=== PATIENT | male | born 1940 | race Caucasian/White ===

== ENCOUNTER 2022-05-08 10:03 | Emergency (ER) | payer MEDICARE, OTHER, SELFPAY ==
[2022-05-08 10:04] VITALS: BP 139/83; PULSE 67; RESP 18; TEMP 36.4; O2SAT 96; BMI 29.5
--- NOTE | 2022-05-08 10:38 | EKG12_ITS ---
Test Reason : SYNCOPE Blood Pressure : / mmHG Vent. Rate : 070 BPM Atrial Rate : 070 BPM P-R Int : 206 ms QRS Dur : 094 ms QT Int : 402 ms P-R-T Axes : 072 -18 034 degrees QTc Int : 434 ms Normal sinus rhythm Normal ECG Confirmed by VERNELL MANDEL, REGIS ([id number]), marketing editor PAULA DUEÑAS ([id number]) on 05/12/2022 12:16:47 P M Referred By: LIMA/PAULIE Confirmed By:JUANA MATT MD
--- NOTE | 2022-05-08 10:40 | EDS_ITS ---
HPI History of Present Illness Chief Complaint: Syncope Informant: patient Narrative Narrative: Patient presents after syncopal episode at physician's office. 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 He always has problems moving his bowels and passing the urine. On the way to a appointment he felt he needed to move his bowels. He went into the bathroom. He states that he strained and strained and strained for a long time. He has had syncope before. So he was told that straining is dangerous and can cause syncope. He started to feel like he was going to pass out doing this. Therefore he stood up and went into the waiting room. He then evidently did pass out. Per the patient and the they were told that a pulse was not able to be felt and CPR was initiated for short period of time there. He has a little soreness in the sternum but not much. He is not having abdominal pain. But he does have some fullness feeling like he needs to move his bowels. His last bowel movement was about 2 days ago. He is not having back pain. He has no known history of a AAA. Of note, he is also on atenolol for one of his blood pressure meds. [facility] Medical History Arthritis Benign hypertension CLL (chronic lymphocytic leukemia) HTN (hypertension) Hypoglycemia Insulin pump titration Leukemia Lymphoma Prostate Tissues Seasonal allergies sub-mucus resection of nose Home Medications atenolol 25 mg tablet 25 mg PO DAILY 12/18/16 [History Last Taken 12/24/16] bupropion HCl 150 mg tablet,12 hr sustained-release 150 mg PO BID MENTAL HEALTH 12/18/16 [History Last Taken 12/25/16] docusate sodium 100 mg capsule 100 mg PO BID CONSTIPATION 12/18/16 [History Last Taken 12/25/16] losartan 50 mg tablet 50 mg PO DAILY BLOOD PRESSURE 12/18/16 [History Last Taken 12/24/16] multivitamin 1 tab PO DAILY SUPPLEMENT 12/18/16 [History Last Taken 12/24/16] psyllium husk 0.4 gram capsule (Daily Fiber) 0.4 g PO DAILY 12/22/19 [History Last Taken Unknown] pantoprazole 40 mg tablet,delayed release ea PO 12/18/20 [History Last Taken Unknown] tumeric 100 mg-alexandra 150 mg-olive 50 mg-oreg 150 mg-caprylate capsule cap PO 06/07/21 [History Last Taken Unknown] insulin aspart U-100 100 unit/mL subcutaneous solution 100 unit subcut DAILY diabetes #90 mL 12/06/21 [Rx Last Taken Unknown] bisacodyl 5 mg tablet,delayed release (Dulcolax (bisacodyl)) 10 mg PO BID PRN constipation #20 tabs 05/08/22 [Rx Last Taken Unknown] Allergy/AdvReac Type Severity Reaction Status Date / Time obinutuzumab Allergy Severe hypersensiv Verified 05/08/22 10:03 ity lisinopril Allergy Other Verified 05/08/22 10:03 Family History Mother Depression Dementia Father Parkinson disease Diabetes CVA (cerebral vascular accident) Surgical History H/O inguinal hernia repair H/O inguinal hernia repair History of appendectomy History of hydrocelectomy History of tonsillectomy and adenoidectomy Social History Smoking Status: Never smoker alcohol intake: never substance use type: does not use what type of physical activity do you participate in: none ROS ROS ED Constitutional Constitutional ED: Denies chills, fever(s) or subjective Eyes Eyes: Denies change in vision ENT ENT ED: Denies rhinorrhea Cardiovascular Cardiovascular: Reports other Details: See history of present illness. ; Denies chest pain, palpitations or racing heartbeat Respiratory/Chest Respiratory/Chest: Denies cough or dyspnea Gastrointestinal Gastrointestinal: Reports constipation; Denies abdominal pain, diarrhea, melena, nausea or vomiting Genitourinary Genitourinary ED: Denies dysuria Musculoskeletal Musculoskeletal: Denies back pain or myalgias Integumentary Denies rash Neurologic Neurologic: Denies headache(s) Hematologic/Lymphatic Hematologic/Lymphatic: Denies easy bleeding or easy bruising Allergic/Immunologic Allergic/Immunologic ED: Denies urticaria EXAM Physical Exam Narrative Exam Narrative: Patient is awake and alert. He gives detailed history of some of his prior events. No sign of confusion. HEENT: Shows no sign of trauma. Mucous membranes are minimally dry. Neck shows no JVD Lungs are actually clear bilaterally. He states he has a little soreness in the sternum but I feel no crepitance or step-off or notable tenderness. Heart is regular with a rate of about 60. I hear no murmur gallop or rub. Pulses are equal upper and lower extremities. Abdomen is mildly obese but nontender. He has a CGM and his insulin pump in place. I hear no bruit. I feel no mass and there is no tenderness. Extremities show no mottling pallor swelling tenderness or loss of pulses. Neurologically he is awake alert appropriate no acute distress. I did not sit him up at this point. But he is not dizzy or lightheaded. Const Vital Signs: 05/08/22 10:04 05/08/22 12:24 05/08/22 13:18 Temperature 97.5 F L Temperature Source Temporal Pulse Rate 67 73 78 Respiratory Rate 18 16 18 Blood Pressure 139/83 H 183/98 H 157/93 H Blood Pressure Mean 101 126 114 Pulse Ox 96 98 99 Oxygen Delivery Method Room Air Room Air Room Air 05/08/22 14:23 05/08/22 16:02 Temperature Temperature Source Pulse Rate 74 80 Respiratory Rate 14 18 Blood Pressure 167/103 H 167/89 H Blood Pressure Mean 124 115 Pulse Ox 99 99 Oxygen Delivery Method Room Air MDM MDM MDM Narrative Medical decision making narrative: Patient's bladder scan showed about 500 cc of urine. He has a history of trouble passing the urine so catheter was placed and he has put out good urine. My independent interpretation of his abdominal series show increased stool throughout the colon but no sign of obstruction or mass. There really is not a lot of stool in the rectum so I do not think an enema would give him a lot of benefit. I think stool softeners will be appropriate. It sounds like he has not taken his docusate recently. CBC is normal including white count hemoglobin and platelets. Lites show minimal decrease of sodium at 133 that should self correct. Renal functions normal. Glucose is high at 390 but he has also been running high. Troponin was normal at 7. We did repeat the troponin. And it came down to 6. This is a unique case. This patient has had syncope a few times before. He had a syncopal episode after straining firmly to move his bowels. He is rechecked he has no pain in his chest abdomen back or rectum. He states he was admitted for this about 6 weeks ago. He had a 4-week Holter monitor afterwards. He followed up with cardiology. They state they see no dysrhythmic issues. He is set to follow-up again in 4 months routinely. I discussed the case with our c software developer, Dr. Gonzalez. I think this is a very unique case. I think this patient got lightheaded from a vasovagal straining episode. When he was lightheaded he stood up and walked to await waiting room which made him pass out. His pulse was very weak. He then got transient CPR but woke up. Even when he was awake his blood pressure was only recorded at 60 but came back up well quickly after that. His heart rate also stated 60s likely due to being on beta-blockers. My suspicion is that he got hypotensive from the syncope and episode. He did not have acute dysrhythmia as likely as the source of this. As long as he feels well walking around I think we can get him home. We will need to get something as a bowel regimen to help him move his bowels. Patient walked without any difficulty. I a long talk with him and his . They are comfortable going home. I will write for some Dulcolax because they do not have any even though he used to be on this. It evidently did help for them. Lab Data Attestation: I reviewed the patient's lab results. Labs: Laboratory Results - last 24 hr 05/08/22 05/08/22 05/08/22 09:45 09:45 13:15 WBC 7.5 RBC 4.52 L Hgb 15.2 Hct 43.6 MCV 96.5 H MCH 33.6 H MCHC 34.9 RDW Std Deviation 46.9 H RDW Coeff of Shelli 13.3 Plt Count 176 MPV 9.2 Immature Gran % (Auto) 0.400 Neut % (Auto) 73.0 H Lymph % (Auto) 15.3 L [place] % (Auto) 7.2 Eos % (Auto) 3.3 Baso % (Auto) 0.8 Absolute Neuts (auto) 5.5 Absolute Lymphs (auto) 1.15 Nucleated RBC % 0 Sodium 133 L Potassium 4.5 Chloride 100 Carbon Dioxide 25.0 Anion Gap 8 BUN 15 Creatinine 1.13 Estim Creat Clear Calc 49.56 Est GFR (MDRD) Af Amer 80 Est GFR (MDRD) Non-Af 66 BUN/Creatinine Ratio 13.3 Glucose 390 H Calcium 9.1 Troponin I High Sens 7 6 Radiography Diagnostic Testing: Clinical Impression(s) from Imaging Studies Acute Abdomen Series 05/08/22 11:00 IMPRESSION: Retained stool, no acute findings Electronically Signed: Francisco Joyce MD at 11:30 EDT , EKG Initial EKG: Comments: My independent interpretation the patient's EKG done for syncope shows a normal sinus rhythm with overall rate at 70. No ventricular ectopy. No acute ST elevation or depression. PA interval is just slightly long at 206 ms showing a slight first-degree AV block. QRS duration and QTc are normal. Discharge Plan Triage Chief Complaint: Syncope ED Provider: Darshan Lau Dx/Rx/DC Orders Clinical Impression: Syncope, vasovagal, Transient hypotension, History of syncope, Constipation Instructions: Treating Constipation, ED Near-Fainting- Vagal Reaction Prescriptions: New bisacodyl [Dulcolax (bisacodyl)] 5 mg tablet,delayed release (DR/EC) 10 mg PO BID PRN (Reason: constipation) Qty: 20 0RF No Action psyllium husk [Daily Fiber] 0.4 gram capsule 0.4 g PO DAILY pantoprazole 40 mg tablet,delayed release (DR/EC) PO pupyvad-ianp-nzutw-oreg-capryl 100 mg-150 mg- 50 mg-150 mg capsule PO insulin aspart U-100 100 unit/mL solution 100 unit SC DAILY Qty: 90 3RF Rx Instructions: via insulin pump multivitamin 1 TABLET tablet 1 tab PO DAILY Label Comments: multivitamin losartan 50 MG tablet 50 mg PO DAILY Label Comments: blood pressure bupropion HCl 150 MG tablet sustained-release 12 hr 150 mg PO BID Label Comments: mental health atenolol 25 MG tablet 25 mg PO DAILY Label Comments: blood pressure docusate sodium 100 MG capsule 100 mg PO BID Label Comments: stool softener Primary Care Provider: Reanna Gilbert Referrals: Reanna Gilbert MD [Primary Care Provider] - 3-5 Days Activity Restrictions/Additional Instructions: Follow-up with your c software developer as scheduled. Disposition Disposition: Home, Self Care
--- NOTE | 2022-05-08 11:00 | RAD_ITS ---
STUDY: X-RAY - ACUTE ABDOMINAL SERIES REASON FOR EXAM: Male, 81 years old. Constipation, S/P CPR TECHNIQUE: Single view of the chest. Supine, upright view(s) of the abdomen were obtained. 6 total views obtained COMPARISON: None. FINDINGS: The lungs are clear and expanded. Normal size heart. Normal mediastinum and jesika. Normal visualized pulmonary arteries. Normal visualized aortic arch and descending thoracic aorta. There is an abundance of fecal material throughout the colon. The soft tissue structures of the abdomen and pelvis are unremarkable. Normal visualized osseous structures. RAD/Acute Abdomen Inc Chest IMPRESSION: Retained stool, no acute findings Electronically Signed: Francisco Joyce MD at 11:30 EDT ,
[2022-05-08 11:09] LABS: Absolute Lymphocyte Count 1.15 X10^3/uL (0.83-4.51); Absolute Neutrophil Count 5.5 X10^3/uL (2.0-7.7); Basophil# 0.06 X10^3/uL; Basophil% 0.8 % (0-1); Eosinophil# 0.25 X10^3/uL; Eosinophils% 3.3 % (0-5); Hematocrit 43.6 % (40-54); Hemoglobin 15.2 g/dL (13.0-16.5); Lymphocyte # 1.15 X10^3/ul (0.83-4.51); Lymphocyte % 15.3 % (19-41); Mean Corp Hgb Conc 34.9 g/dL (32-36); Mean Corpuscular Hgb 33.6 pg (27.0-32.0); Mean Corpuscular Volume 96.5 fL (80-94); Mean Platelet Vol. 9.2 fl (6.2-12.0); Monocyte# 0.54 X10^3/uL; Monocyte% 7.2 % (0-10); NRBC Flagged by Analyzer 0 % (0-5); Neutrophil # 5.51 X10^3/uL (2.7-7.7); Platelet Count 176 K/mm3 (150-450); RBC Distribution Width CV 13.3 % (11.6-14.6); RBC Distribution Width SD 46.9 fl (35.1-43.9); Red Blood Count 4.52 M/mm3 (4.6-6.2); White Blood Count 7.5 K/mm3 (4.4-11.0)
[2022-05-08 11:32] LABS: Anion Gap 8 (5-15); BUN 15 mg/dL (7-18); BUN/Creat Ratio 13.3 RATIO (10-20); Calcium,Total 9.1 mg/dL (8.5-10.1); Chloride 100 mmol/L (98-107); Creatinine, Serum 1.13 mg/dL (0.70-1.30); EST Glomerular Filtration Rate 66 mL/min (>60); Est Glom Filt Rate - Afr Amer 80 mL/min (>60); Estimated Creatinine Clearance 49.56 ml/min; Glucose 390 mg/dL (74-106); Potassium 4.5 mmol/L (3.5-5.1); Sodium Level 133 mmol/L (136-145); Troponin-I HS (w/2H Reflex) 7 pg/mL (3.0-78.0)
[2022-05-08 12:24] VITALS: BP 183/98; PULSE 73; RESP 16; O2SAT 98
[2022-05-08 13:05] LABS: Reflex Troponin-HS? (from REC) Y
[2022-05-08 13:18] VITALS: BP 157/93; PULSE 78; RESP 18; O2SAT 99
[2022-05-08 13:41] LABS: Troponin-I HS 6 pg/mL (3.0-78.0)
[2022-05-08 14:23] VITALS: BP 167/103; PULSE 74; RESP 14; O2SAT 99
[2022-05-08 16:02] VITALS: BP 167/89; PULSE 80; RESP 18; O2SAT 99
--- NOTE | 2022-05-08 17:11 | ED.RN ---
PT REQUESTING TO SPEAK WITH DR APODACA BEFORE D/C. NOTIFIED.
== END 2022-05-08 17:38 | disposition home or self-care (01) ==
PROVIDERS: Emergency Provider Emergency Medicine; PCP Family Medicine; Visit Provider Emergency Medicine
DX: R55 Syncope and collapse (principal); E11.40 Type 2 diabetes mellitus with diabetic neuropathy, unspecified; I10 Essential (primary) hypertension; K59.00 Constipation, unspecified; I95.89 Other hypotension
CPT/HCPCS: 74022; 80048; 84484; 85025; 93005; 96360; 96361; 99285; A4216

== ENCOUNTER → 2022-09-01 | Outpatient (CLI) | payer MEDICARE, OTHER, SELFPAY ==
[2022-09-01 13:27] LABS: PSA,Total - Annual Screen 1.37 ng/mL (0.00-4.00)
== END | disposition home or self-care (01) ==
LOC: LAB 12:11
PROVIDERS: PCP Family Medicine; Referring Provider Urology; Visit Provider Urology
DX: Z12.5 Encounter for screening for malignant neoplasm of prostate (principal)
CPT/HCPCS: 36415; 84153; G0103